=== PATIENT | female | born 1965 | race Caucasian/White ===

== ENCOUNTER 2020-09-03 11:37 | Outpatient (CLI) | payer OTHER ==
[~2020-09-03 11:37] MED LIST: TENCON TABLET1 TAB PO
== END 2020-09-03 15:00 | disposition home or self-care (01) ==
LOC: LAB 11:37
PROVIDERS: ATTEND Pathology Anatomic Pathology
DX: E06.3 Autoimmune thyroiditis (principal); E55.9 Vitamin D deficiency, unspecified; M81.0 Age-related osteoporosis without current pathological fracture